=== PATIENT | male | born 1975 | race Caucasian/White ===

== ENCOUNTER 2020-07-03 20:05 | Emergency (ER) | payer OTHER ==
[~2020-07-03] VITALS: Ht 193 cm; Wt 96.2 kg
[~2020-07-03 20:05] MED LIST: HYDROCODONE AP; KEFLEX500 MG PO; NOHOMEMEDICATIONS
[2020-07-03] MEDS ORDERED: NEXIUM20 MG PO (20:18)
[2020-07-03 20:58] LABS: ABSOLUTE BASOPHILS 0.1 thou/uL (0.0-0.2); ABSOLUTE EOSINOPHILS 0.1 thou/uL (0.0-0.7); ABSOLUTE LYMPHOCYTES 2.6 thou/uL (0.8-5.3); ABSOLUTE MONOCYTES 1.4 thou/uL (0.0-1.2); ABSOLUTE NEUTROPHILS 8.2 thou/uL (1.6-8.1); BASOPHILS 0.5 %; EOSINOPHILS 1.2 %; HEMATOCRIT 44.6 % (42.0-52.0); HEMOGLOBIN 15.2 gm/dL (14.0-18.0); LYMPHOCYTES 20.9 %; MCH 29.8 pg (26.0-34.0); MCHC 34.1 g/dL (28.0-37.0); MCV 87.5 fL (80.0-100.0); MONOCYTES 11.2 %; MPV 8.2 fl. (7.2-11.1); NUCLEATED RBCS 0 /100WBC; PLATELET COUNT* 305 thou/uL (150-400); POLYS 66.2 %; RDW-CV 13.6 % (10.5-14.5); WBC 12.3 thou/uL (4.0-11.0)
[2020-07-03 21:11] LABS: CALCIUM 8.8 mg/dL (8.5-10.1); POTASSIUM 3.5 mmol/L (3.5-5.1)
[2020-07-03 21:17] LABS: TOTAL BILIRUBIN 0.9 mg/dL (<0.1-1.0); TOTAL PROTEIN 8.8 g/dL (6.4-8.2)
[2020-07-03] MEDS ORDERED: MEDROLDOSEPACK PO (21:20)
[2020-07-03] MEDS ORDERED: FLEXERIL PO (21:20)
[2020-07-03] MEDS ORDERED: VISTARIL 25 MG25 M1 PO (21:23)
[2020-07-03] MEDS ORDERED: ZPAK PO (21:30)
[2020-07-03 21:44] VITALS: BP 121/70
--- NOTE | 2020-07-04 10:22 | EKG ---
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
== END 2020-07-03 21:46 | disposition home or self-care (01) ==
LOC: M.ERS 20:05
PROVIDERS: Physician Assistant
DX: M94.0 Chondrocostal junction syndrome [Tietze] (principal); K21.9 Gastro-esophageal reflux disease without esophagitis; Z88.5 Allergy status to narcotic agent